=== PATIENT | female | born 1950 | race Caucasian/White ===

== ENCOUNTER 2016-09-14 17:53 | Observation (INO) ==
[2016-09-14] MEDS ORDERED: SODIUM CHLORIDE 0.9% 1,000 ML IV STA (18:48)
--- NOTE | 2016-09-14 19:03 | Emergency Department Note ---
IDona Emily, am scribing for, and in the presence of, Michael Zaidi MD 19: 01. IDyan Charles R, MD, personally performed the services described in this documentation, ascribed by Renay Carcamo in my presence, and it is both accurate and complete [id number] . Arrival - Arrival Chief Complaint: Syncope Stated Complaint: syncope ED Nursing Triage Note: Brought in per EMS with c/o syncopal episode after having bowel movement prior to arrival. Reports has been at [facility] in heat all day and became dizzy, went to restroom and had syncopal episode. Denies pain. AAO x 3, speech clear. Mode of Arrival: Stretcher Limitations: No Limitations Source: Patient, Family Time Seen by Provider: 09/14/16 18:21 - History of Present Illness HPI Narrative: Pt is a 66 y/o female who came to ED for further evaluation of syncopal episode that happened earlier today at a baseball game. Pt experienced nausea, mild cramping in abdomen, and immediately had to go to the bathroom for a BM. Pt rushed to the restroom at the baseball game, in which had gross amount of loose stool but denies diarrhea. Family member notes pt had syncope episode while in the restroom but pt states she doesn't remember. Pt notes she walks 2 miles a day with no chest pain or SOB. Family member reports eating at [employer] prior to the baseball game, in which the dinner was "bad" with brown lettuce. Pt states she "feels good" in ED but has some "woosiness" when sitting up straight. Pt denies emesis, melena, or constipation. Pt's BP in ED is 85/66. PMHx of CAD but no stents. Onset (ago): hour(s) Consistency: intermittent, now resolved Severity: moderate Severity scale (1-10): 5 Quality: cramping Date of Last Menstrual Period: PM Allergies/Adverse Reactions: Allergies Allergy/AdvReac Type Severity Reaction Status Date / Time No Known Allergies Allergy Verified 09/14/16 18:02 Review of System - Review of System 12 point system: reviewed and no additional remarkable complaints except as stated - Review of System Constitutional: Present: weakness (now resolved). Absent: diaphoresis, fever Respiratory: Absent: respiratory distress Cardiovascular: Present: syncope. Absent: chest pain Gastrointestinal: Present: abdominal pain (cramping; now resolved), nausea (now resolved). Absent: vomiting, diarrhea, constipation Musculoskeletal: Absent: arm pain, back pain, leg pain, neck pain Skin: Absent: rash Neurological: Present: other (woosy in ED when sits up). Absent: headache, numbness, confusion Psychiatric: Absent: anxiety Medical,Surgical,& Family Hx - Medical History Cardio: History of: CAD, Hypertension - Surgical History Surgical History: noncontributory - Family History Family History: noncontributory - Social History Smoking Status: Never smoker Frequency of Alcohol Use: None Type of Drug Use: None Marital Status: Lives With:: Spouse Functional capacity: independent ambulation Exam Vital Signs: Vital Signs Temperature 97.7 F 09/14/16 17:54 Pulse Rate 64 09/14/16 20:00 Respiratory Rate 16 09/14/16 18:45 Blood Pressure 109/58 09/14/16 20:00 O2 Sat by Pulse Oximetry 99 09/14/16 18:45 - General General appearance: alert, in no apparent distress - Head Head exam: Present: atraumatic, normocephalic - Eye Eye exam: Present: PERRL, EOMI, nystagmus (only when sitting up), other (sunken orbits) - ENT ENT exam: Present: mucous membranes dry. Absent: mucous membranes moist - Neck Neck exam: Present: full ROM. Absent: tenderness - Chest Chest inspection: Present: symmetric chest wall rise. Absent: tenderness - Respiratory Respiratory exam: Present: normal lung sounds bilaterally. Absent: respiratory distress - Cardiovascular Cardiovascular exam: Present: bradycardia, normal heart sounds - Abdominal Exam Abdominal exam: Present: soft. Absent: tenderness - Extremities Exam Extremities exam: Present: full ROM. Absent: tenderness, pedal edema - Neurological Exam Neurological exam: Present: alert, oriented X3, CN II-XII intact. Absent: motor sensory deficit - Psychiatric Psychiatric exam: Present: normal affect, normal mood - Skin Skin exam: Present: warm, dry, other (sunburned). Absent: intact (poor skin tugor) Course - Reevaluation(s) Reevaluation #1: Patient feels very she is asymptomatic slightly weak, patient reports no chest pain or shortness of breath Time: 20:18 - Consultations Consultation #1: Hospitalist will admit patient Time: 20:20 Results - Labs CBC & BMP: 09/14/16 18:48 09/14/16 18:48 Lab Results: I have reviewed the patients labs Labs: Laboratory Tests 09/14/16 09/14/16 18:48 18:48 Hgb 11.6 L Hct 35.6 L [place] # (Auto) 0.9 H Chloride 109 H Calcium 7.9 L Troponin I 0.108 H Total Protein 5.8 L Albumin 3.2 L - Diagnostic Findings Procedure: Chest x-ray: report reviewed by me (No acute cardiopulmonary process. ), CT: report reviewed by me (No acute intracranial abnormality. Incidental note is made of a 31 x 14 mm arachnoid cyst in the left middle cranial fossa.) Disposition Clinical Impression: Vasovagal syncope, Elevated troponin, Syncope and collapse, Generalized weakness Case discussed with: patient, patient's family Disposition: Still a Patient Condition: Stable Time of Disposition: 20:21
[2016-09-14 19:06] LABS: Basophils % 0.4 % (0.0-0.8); Eosinophils # 0.1 10*3/uL (0.0-0.87); Eosinophils % 1.3 % (0.00-10.9); Hematocrit 35.6 VOL% (35.7-47.0); Hemoglobin 11.6 GM/DL (12.0-16.0); Immature Granulocytes % 0.3 %; Immature Granulocytes Absolute 0.03 #; Lymphocytes # 2.4 10*3/uL (1.4-4.0); Lymphocytes % 23.7 % (21.3-54.2); Mean Corpuscular HGB Conc 32.6 GM/DL (32-36); Mean Corpuscular Hemoglobin 30 PG (27-34); Mean Corpuscular Volume 90.8 FL (87-102); Mean Platelet Volume 11.2 FL (9.6-12.0); Monocytes # 0.9 10*3/uL (0.11-0.8); Neutrophils # 6.5 10*3/uL (1.4-7.4); Neutrophils % 65.3 % (38.7-73.9); Platelet Count 213 T/CUMM (130-400); Red Blood Count 3.92 MC/CUMM (3.8-5.5); Red Cell Distribution Width 12.7 % (9.3-17.3)
[2016-09-14 19:08] LABS: PT Patient Result 11.1 SECS
[2016-09-14 19:13] LABS: Alanine Aminotransferase 18 U/L (13-56); Albumin 3.2 G/DL (3.4-5.0); Alkaline Phosphatase 57 U/L (45-117); Aspartate Amino Transferase 18 U/L (0-37); Bilirubin,Total < 0.39 MG/DL (0.2-1.0); Blood Urea Nitrogen 13 MG/DL (7-18); Calcium 7.9 MG/DL (8.5-10.1); Glucose 83 MG/DL (74-106); Magnesium 1.8 MG/DL (1.8-2.4); Potassium 3.9 MMOL/L (3.5-5.1); Sodium 143 MMOL/L (136-145); Total Protein 5.8 G/DL (6.4-8.3); Troponin I Only 0.108 NG/ML (0.00-0.045)
--- NOTE | 2016-09-14 19:14 | CT Report ---
History: Syncope Date: 09/14/2016 Study: CT head without contrast Comparison exam: No previous Transaxial CT sections were obtained through the head without IV contrast. This CT exam was performed using one or more the following dose reduction techniques: Automated exposure control, adjustment of the MA and/or KV according to patient size, or use of iterative reconstruction technique. The ventricles are midline in position without evidence of hydrocephalus. There is no parenchymal mass or parenchymal hemorrhage. There is no gross CT evidence of acute cortical stroke. There is no extra-axial hematoma. There is prominence of the extra-axial space medial to the left temporal lobe anteriorly compatible with incidental 31 x 14 mm CSF density arachnoid cyst. There is no acute abnormality of the calvarium. The paranasal sinuses and mastoid air cells are clear where visualized. Impression: No acute intracranial abnormality. Incidental note is made of a 31 x 14 mm arachnoid cyst in the left middle cranial fossa PROCEDURE INTERPRETED AT [facility] DEPARTMENT OF RADIOLOGY Final Report Signed by: Dr. Neli Escalante
--- NOTE | 2016-09-14 19:18 | XRay Report ---
History: Shortness of breath Date: 09/14/2016 Study: Chest x-ray AP portable Comparison exam: No previous The cardiac silhouette is upper normal in size. There is no mediastinal mass. The pulmonary vasculature is not engorged. The lungs and pleural spaces are clear. Osseous structures are unremarkable. Impression: No acute cardiopulmonary process PROCEDURE INTERPRETED AT [facility] DEPARTMENT OF RADIOLOGY Final Report Signed by: Dr. Neli Escalante
[2016-09-14 19:58] LABS: Apearance,Urine CLOUDY (Clear); Bacteria,Urine Moderate /HPF (Few); Bilirubin,Urine Negative (Negative); Blood, Urine Negative (Negative); Glucose,Urine (UA) Negative (Negative); Hyaline Casts,Urine 28 /LPF (0-3); Ketones,Urine 5 mg/dL (Negative); Mucus,Urine Moderate /LPF (Occasional); Nitrite,Urine Negative (Negative); Protein,Urine 30 MG/DL; RBC,Urine 15 /HPF (0-4); Squamous Epithelial Cell,Urine Occasional /HPF (0-10); Urine Color Yellow (Yellow); Urine Urobilinogen < 2.0 EU/DL (0.2-1.0); WBC,Urine 6 /HPF (0-6)
--- NOTE | 2016-09-14 20:23 | Hospitalist History & Physical ---
Assessment and Plan - Time spent with patient Time spent with patient: Greater than 30 minutes (1) Syncope and collapse Status: Acute Assessment and plan: Continue cardiac evaluation including possible echocardiogram in the a.m. Will consult cardiology to assist with her care. Current Visit: Yes (2) Elevated troponin Status: Acute Assessment and plan: We will be placing her on telemetry and obtain serial cardiac biomarkers and EKGs. Will continue aspirin, beta-jennifer, statin, nitroglycerin as needed. She will receive Lovenox for DVT prophylaxis. Current Visit: Yes (3) Coronary artery disease Status: Chronic Assessment and plan: Patient has a history of coronary artery disease which he is described as being nonobstructive and treated medically only. She had no chest pain, shortness breath, nausea, vomiting. Her troponin was elevated and she will be admitted for serial cardiac biomarkers. Current Visit: Yes (4) Hypertension Status: Chronic Assessment and plan: She has a history of chronic essential hypertension which is currently well controlled. Continue her current medical regimen. Current Visit: Yes Qualifiers: Hypertension type: essential hypertension Qualified Code(s): I10 - Essential (primary) hypertension (5) Hyperlipidemia Status: Chronic Assessment and plan: Continue statin therapy. Current Visit: Yes History of Present Illness Chief complaint: Dizziness History of present illness: Ms. Mohr is a 66 year old white female with history of coronary artery disease, hypertension who is from [facility] and was visiting here for a ball game. She noted while sitting in the stands that she became dizzy like things were spinning and that she needed to go to the bathroom. Her took her to the bathroom where she states that she had nonbloody diarrhea. After getting up and walking to the door she felt dizzy again called for her who opened the door and she was eased to the ground. She states that she never lost consciousness but was unable to open her eyes and could hear surroundings. Family states it took about 10 minutes for her to come back to her normal state. She denied any associated headache, visual or auditory disturbance, focal motor weakness or paresthesias, chest pain, shortness of breath, diaphoresis, palpitations. She does note that she has been out in the heat all day and had only one glass of water. Upon arrival to the emergency room and receiving fluids she is now completely asymptomatic. She was evaluated and noted to have an elevated troponin and is felt that she would require further observation. Her primary care provider is in mobile as well as her addiction nurse. She does note that she has had cardiac cath in the past and did not require any standing and is being treated medically only. Her medications include metoprolol, lisinopril, statin drug. Allergies Allergy/AdvReac Type Severity Reaction Status Date / Time No Known Allergies Allergy Verified 09/14/16 18:02 Medical,Surgical,& Family Hx - Medical History Cardio: History of: CAD, Hypertension - Surgical History Surgical History: noncontributory - Family History Family History: Reports;: Family Hypertension - Social History Smoking Status: Never smoker Frequency of Alcohol Use: None Type of Drug Use: None Marital Status: Lives With:: Spouse Functional capacity: independent ambulation 12 point system: reviewed and no additional remarkable complaints except as stated Exam - Constitutional Vitals: Period Temp Pulse Resp BP Sys/Boo Pulse Ox Last 24 Hr 97.7 F-97.7 F 52-64 16-18 103-111/58-71 96-99 - Head Head exam: Present: normocephalic, atraumatic - Eye Eye exam: Present: EOMI. Absent: nystagmus Pupils: Present: MYRON - ENT ENT exam: Present: normal oropharynx - Neck Neck exam: Present: normal inspection. Absent: lymphadenopathy, meningismus, tenderness, thyromegaly - Respiratory Respiratory exam: Present: clear to auscultation bilaterally. Absent: rales, rhonchi, wheezes - Cardiovascular Cardiovascular exam: Present: regular rate and rhythm. Absent: gallop, JVD, rubs, systolic murmur, tachycardia - GI/Abdominal GI/Abdominal exam: Present: normal bowel sounds, soft. Absent: mass, tenderness , rebound - Extremities Exam Extremities exam: Present: normal capillary refill. Absent: calf tenderness, edema - Back Exam Back exam: Present: normal inspection - Psychiatric Psychiatric exam: Present: normal affect, normal mood. Absent: agitated, anxious - Skin Skin exam: Present: warm, dry. Absent: erythema, rash Results - Labs CBC & BMP: 09/14/16 18:48 09/14/16 18:48 Lab Results: I have reviewed the past 24 hour labs - EKG EKG shows: sinus rhythm - Diagnostic Findings Procedure: CT: report reviewed by me
[2016-09-14] MEDS ORDERED: ONDANSETRON 4 MG/2 ML VIAL IV PRN (20:51)
[2016-09-14] MEDS ORDERED: ENOXAPARIN 40 MG/0.4 ML SYRINGE SUBCUT SCH (21:00)
[2016-09-15] MEDS: DEXT 5% NACL 0.45% KCL 20 MEQ 20 MEQ/1,000 ML BAG IV SCH ×2 (01:06→09:56)
[2016-09-15] MEDS: NITROGLYCERIN 2% OINT 1 INCH/GM PACK TOP SCH ×2 (01:06→06:14)
[2016-09-15] MEDS: METOPROLOL TARTRATE 25 MG TABLET PO SCH ×2 (01:07→09:57)
[2016-09-15 04:29] LABS: Basophils % 0.4 % (0.0-0.8); Eosinophils # 0.1 10*3/uL (0.0-0.87); Eosinophils % 0.8 % (0.00-10.9); Hematocrit 33.5 VOL% (35.7-47.0); Immature Granulocytes % 0.2 %; Immature Granulocytes Absolute 0.02 #; Lymphocytes # 2.2 10*3/uL (1.4-4.0); Lymphocytes % 22.8 % (21.3-54.2); Mean Corpuscular HGB Conc 32.8 GM/DL (32-36); Mean Corpuscular Hemoglobin 30 PG (27-34); Mean Corpuscular Volume 90.8 FL (87-102); Mean Platelet Volume 11.1 FL (9.6-12.0); Monocytes # 0.8 10*3/uL (0.11-0.8); Monocytes % 8.6 % (1.7-12.7); Neutrophils # 6.3 10*3/uL (1.4-7.4); Neutrophils % 67.2 % (38.7-73.9); Platelet Count 193 T/CUMM (130-400); Red Blood Count 3.69 MC/CUMM (3.8-5.5); Red Cell Distribution Width 12.5 % (9.3-17.3); White Blood Count 9.4 T/CUMM (4-12)
[2016-09-15 04:56] LABS: Calcium 8.3 MG/DL (8.5-10.1); Potassium 4.3 MMOL/L (3.5-5.1)
[2016-09-15 08:09] VITALS: BP 125/63
[2016-09-15] MEDS ORDERED: ASPIRIN 325 MG TABLET PO SCH (09:00)
--- NOTE | 2016-09-15 09:48 | EKG Report ---
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
--- NOTE | 2016-09-15 09:48 | EKG Report ---
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
--- NOTE | 2016-09-15 09:49 | EKG Report ---
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
[2016-09-15] MEDS ORDERED: LISINOPRIL 10 MG TABLET PO SCH (10:30)
--- NOTE | 2016-09-15 10:37 | Discharge Summary ---
Hospital Course - Hospital Course Hospital Course: Ms. Mohr is a 66 year old white female with history of coronary artery disease, hypertension who is from [facility] and was visiting here for a ball game. She noted while sitting in the stands that she became dizzy then passed out. Patient was noted to be hypotensive in the emergency room with systolic pressure in the 70s. EKG unremarkable. Initial troponin 0.108 second troponin 0.099. UA shows dehydration. White count normal. Hemoglobin 11. Patient feels great today and is not orthostatic. Patient denies any chest pain or shortness of breath. Blood pressure is elevated today and we restarted her lisinopril and her metoprolol. She will be discharged home to follow-up with her primary care doctor in 1-2 weeks. - Time spent with patient Time with patient DS: Less than 30 minutes (25 minutes) Discharge Plan - Discharge Data Disposition: Disch To Home/Self Care Condition at Discharge: Stable Discharge Diet: heart healthy Activity: resume usual activities as tolerated Hygiene: no restrictions Weight Bearing at Discharge: full weight bearing - Discharge Medications Continue Pitavastatin [Livalo] 2 mg PO QOTHER DAY Aspirin [Lo-Dose Aspirin EC] 81 mg PO BEDTIME Metoprolol Tartrate Tab [Lopressor Tab] 25 mg PO BEDTIME Metoprolol Tartrate Tab [Lopressor Tab] 12.5 mg PO DAILY Discontinued Lisinopril 10 mg PO DAILY - Follow Up or Referral Follow Up: PMD, [Other] - 1 Week - Forms/Instructions Additional Discharge Instructions: Keep well-hydrated. Exam - Constitutional Vitals: Period Temp Pulse Resp BP Sys/Boo Pulse Ox Last 24 Hr 97.7 F-98.8 F 52-66 16-20 103-144/57-74 93-99 General appearance: normal weight, no acute distress - Respiratory Respiratory exam: Present: clear to auscultation bilaterally. Absent: rhonchi, wheezes - Cardiovascular Cardiovascular exam: Present: regular rate and rhythm. Absent: systolic murmur - GI/Abdominal GI/Abdominal exam: Present: normal bowel sounds, soft. Absent: tenderness - Extremities Exam Extremities exam: Present: normal inspection, normal capillary refill Discharge Results Procedures and tests throughout hospitalization: Pending Orders 09/14/16 Urine Culture Routine Labs on day of discharge: Labs from last 24 hours 09/15/16 09/15/1617 03:31 03:31 03:31 WBC 9.4 RBC 3.69 L Hgb 11.0 L Hct 33.5 L MCV 90.8 MCH 30 MCHC 32.8 RDW 12.5 Plt Count 193 MPV 11.1 Neut % (Auto) 67.2 Lymph % (Auto) 22.8 [place] % (Auto) 8.6 Eos % (Auto) 0.8 Baso % (Auto) 0.4 Neut # (Auto) 6.3 Lymph # (Auto) 2.2 [place] # (Auto) 0.8 Eos # (Auto) 0.1 Baso # (Auto) 0.0 Immature Gran % 0.2 Nucleated RBC % 0.0 Immature Gran # 0.02 Nucleated RBCs # 0.00 INR PT Patient/Control Mix Sodium 143 Potassium 4.3 Chloride 110 H Carbon Dioxide 25 Anion Gap 12.3 BUN 11 Creatinine 0.60 GFR Calculation 89 BUN/Creatinine Ratio 18.00 Glucose 116 H Calculated Osmolality 284.0 Calcium 8.3 L Magnesium Total Bilirubin AST ALT Alkaline Phosphatase Troponin I 0.099 H B-Natriuretic Peptide Total Protein Albumin Globulin Albumin/Globulin Ratio Urine Color Urine Appearance Urine pH Ur Specific [place] Urine Protein Urine Glucose (UA) Urine Ketones Urine Blood Urine Nitrate Urine Bilirubin Urine Urobilinogen Urine Leukocytes Urine RBC Urine WBC Ur Squamous Epith Cells Urine Bacteria Hyaline Casts Urine Mucus Ur Culture Indicated? Blood Type Antibody Screen 09/14/16 09/14/16 09/14/16 19:41 19:41 18:48 WBC RBC Hgb Hct MCV MCH MCHC RDW Plt Count MPV Neut % (Auto) Lymph % (Auto) [place] % (Auto) Eos % (Auto) Baso % (Auto) Neut # (Auto) Lymph # (Auto) [place] # (Auto) Eos # (Auto) Baso # (Auto) Immature Gran % Nucleated RBC % Immature Gran # Nucleated RBCs # INR PT Patient/Control Mix Sodium Potassium Chloride Carbon Dioxide Anion Gap BUN Creatinine GFR Calculation BUN/Creatinine Ratio Glucose Calculated Osmolality Calcium Magnesium Total Bilirubin AST ALT Alkaline Phosphatase Troponin I B-Natriuretic Peptide 31 Total Protein Albumin Globulin Albumin/Globulin Ratio Urine Color Yellow Urine Appearance Cloudy Urine pH 5.0 Ur Specific [place] 1.020 Urine Protein 30 Urine Glucose (UA) Negative Urine Ketones 5 Urine Blood Negative Urine Nitrate Negative Urine Bilirubin Negative Urine Urobilinogen < 2.0 H Urine Leukocytes Trace Urine RBC 15 Urine WBC 6 Ur Squamous Epith Cells Occasional Urine Bacteria Moderate Hyaline Casts 28 Urine Mucus Moderate Ur Culture Indicated? Results to follow Blood Type A POSITIVE Antibody Screen Negative 09/14/16 09/14/16 09/14/16 18:48 18:48 18:48 WBC 10.0 RBC 3.92 Hgb 11.6 L Hct 35.6 L MCV 90.8 MCH 30 MCHC 32.6 RDW 12.7 Plt Count 213 MPV 11.2 Neut % (Auto) 65.3 Lymph % (Auto) 23.7 [place] % (Auto) 9.0 Eos % (Auto) 1.3 Baso % (Auto) 0.4 Neut # (Auto) 6.5 Lymph # (Auto) 2.4 [place] # (Auto) 0.9 H Eos # (Auto) 0.1 Baso # (Auto) 0.0 Immature Gran % 0.3 Nucleated RBC % 0.0 Immature Gran # 0.03 Nucleated RBCs # 0.00 INR 1.0 PT Patient/Control Mix 11.1 Sodium 143 Potassium 3.9 Chloride 109 H Carbon Dioxide 27 Anion Gap 10.9 BUN 13 Creatinine 1.00 GFR Calculation 53 BUN/Creatinine Ratio 13.00 Glucose 83 Calculated Osmolality 283.0 Calcium 7.9 L Magnesium 1.8 Total Bilirubin < 0.39 AST 18 ALT 18 Alkaline Phosphatase 57 Troponin I 0.108 H B-Natriuretic Peptide Total Protein 5.8 L Albumin 3.2 L Globulin 2.6 Albumin/Globulin Ratio 1.2 Urine Color Urine Appearance Urine pH Ur Specific [place] Urine Protein Urine Glucose (UA) Urine Ketones Urine Blood Urine Nitrate Urine Bilirubin Urine Urobilinogen Urine Leukocytes Urine RBC Urine WBC Ur Squamous Epith Cells Urine Bacteria Hyaline Casts Urine Mucus Ur Culture Indicated? Blood Type Antibody Screen Preliminary micro results at discharge 09/14/16 Unknown Urine Culture - Preliminary Urine,Voided No Growth at 12 hours. DS: Provider Date of admission: 09/14/16 20:24 Primary care physician: . No PCP Attending physician on admission: Domenico York MD Discharging clinician: Natividad Laura MD
[2016-09-15] MEDS ORDERED: PITAVASTATIN 2 MG TABLET PO SCH (21:00)
== END 2016-09-15 11:15 | disposition home or self-care (01) ==
LOC: N.ED 17:53 → N.EDINP 17:53 → N.TELES 22:42
PROVIDERS: ADMIT Internal Medicine; ATTEND Internal Medicine